=== PATIENT | male | born 1980 | race American Indian/Alaskan Native ===

== ENCOUNTER 2024-01-18 21:26 | Inpatient (IN) | payer MEDICAID ==
[2024-01-18 22:39] LABS: BASOPHILS ABSOLUTE AUTO 0.04 K/uL (0.00-0.10); BASOPHILS PERCENT AUTO 0.4 % (0.1-1.3); EOSINOPHILS ABSOLUTE AUTO 0.15 K/uL (0.00-0.40); EOSINOPHILS PERCENT AUTO 1.4 % (0.0-5.4); HEMOGLOBIN 13.2 g/dL (12.9-16.9); IMMATURE GRAN ABSOLUTE AUTO 0.06 K/uL (0.00-0.23); IMMATURE GRAN PERCENT AUTO 0.6 % (0.0-0.7); LYMPHOCYTES ABSOLUTE AUTO 0.79 K/uL (0.8-3.3); LYMPHOCYTES PERCENT AUTO 7.3 % (11.4-47.7); MEAN CORPUSCULAR HGB CONC 34.7 g/dL (31.6-35.5); MEAN CORPUSCULAR VOLUME 83.5 fL (81.4-99.0); MONOCYTES ABSOLUTE AUTO 0.76 K/uL (0.20-0.90); NEUTROPHILS ABSOLUTE AUTO 9.07 K/uL (1.0-7.6); NEUTROPHILS PERCENT AUTO 83.3 % (40.0-78.1); PLATELET COUNT,PLT 373 K/uL (130-375); RED BLOOD CELL COUNT 4.55 M/uL (4.14-5.76); WHITE BLOOD CELL COUNT,WBC 10.9 K/uL (3.2-11.0)
[2024-01-18] MEDS: Sodium Chloride 0.9% 10 ML Syringe FLUSH PRN (22:44)
[2024-01-18] MEDS: fentaNYL 100 MCG/2 ML SDV IVPUSH ONE (22:44)
[2024-01-18 23:05] LABS: A/G RATIO 0.9 (1.2-2.2); ALANINE AMINOTRANSFERASE,ALT 31 U/L (12-78); ALBUMIN 3.4 g/dL (3.4-5.0); ALKALINE PHOSPHATASE 116 U/L (46-116); ASPARTATE AMNIOTRANSFERASE,AST 19 U/L (15-37); BILIRUBIN TOTAL 0.6 mg/dL (0.2-1.0); BLOOD UREA NITROGEN,BUN 18 mg/dL (7-18); CALCIUM 8.8 mg/dL (8.5-10.1); CARBON DIOXIDE,CO2 31 mmol/L (21-32); CHLORIDE,CL 101 mmol/L (100-108); CREATININE 0.8 mg/dL (0.8-1.3); EST CRCL DRUG DOSING (CG) 135.57 mL/min; ESTIMATED GFR 111 mL/min (>60); GLUCOSE RANDOM 124 mg/dL (74-106); POTASSIUM,K 3.9 mmol/L (3.6-5.2); PROTEIN TOTAL,TP 7.3 g/dL (6.4-8.2); SODIUM,NA 139 mmol/L (140-148)
[2024-01-18 23:09] LABS: ANION GAP 10.9 mmol/L (5.0-14.0); TROPONIN I HIGH SENSITIVITY < 4.0 pg/mL (<=60.3)
[2024-01-18] MEDS: Iopamidol 612 MG/ML 100 ML Bottle IV STA (23:09)
[2024-01-18] MEDS: Sodium Chloride 0.9% 80 ML IV STA (23:10)
[2024-01-19] MEDS: Piperacillin/Tazobactam 4.5 GM in Sodium Chloride 0.9% 100 ML IV ONE (02:03)
[2024-01-19] MEDS: HYDROmorphone 0.5 MG/0.5 ML Syringe IVPUSH ONE (02:16)
[2024-01-19] MEDS: metroNIDAZOLE/Normal Saline 500 MG in Premix Bag 1 BAG IV SCH (02:44)
[2024-01-19] MEDS ORDERED: Albuterol 0.083% 2.5 MG/3 ML Neb Soln NEB PRN (02:59)
[2024-01-19] MEDS ORDERED: Ondansetron 4 MG/2 ML SDV IV PRN (02:59)
[2024-01-19] MEDS: HYDROmorphone 1 MG/ML Syringe IVPUSH PRN (03:07)
[2024-01-19] MEDS: METRONIDAZOLE IV ONE (03:13)
[2024-01-19] MEDS: NORMAL SALINE IV ONE (03:13)
[2024-01-19] MEDS: Sodium Chloride 0.9% 1,000 ML IV SCH (03:41)
[2024-01-19] MEDS: Nicotine 21 MG/24 Hr Patch TRDERM SCH (03:47)
[2024-01-19] MEDS ORDERED: FLU (Fluarix Triv) TS24-25(6MOS UP)/PF 45 MCG/0.5 ML Syringe IM ONE (04:00)
[2024-01-19] MEDS: Piperacillin/Tazobactam 4.5 GM in Sodium Chloride 0.9% 100 ML IV SCH (05:56)
[2024-01-19] MEDS ORDERED: Piperacillin/Tazobactam 3.375 GM in Sodium Chloride 0.9% 50 ML IV SCH (07:10)
[2024-01-19] MEDS: fentaNYL 100 MCG/2 ML SDV IVPUSH PRN ×2 (07:38→09:40)
[2024-01-19] MEDS ORDERED: metroNIDAZOLE/Normal Saline 500 MG in Premix Bag 1 BAG IV SCH ×2 (09:00→12:00)
[2024-01-19] MEDS ORDERED: Ondansetron 4 MG/2 ML SDV ONE (11:43)
[2024-01-19] MEDS ORDERED: Dexamethasone 4 MG/ML SDV ONE (11:43)
[2024-01-19] MEDS ORDERED: Propofol 200 MG/20 ML SDV ONE (11:43)
[2024-01-19] MEDS ORDERED: Rocuronium 50 MG/5 ML Vial ONE (11:43)
[2024-01-19] MEDS ORDERED: Succinylcholine 200 MG/10 ML MDV ONE (11:43)
[2024-01-19] MEDS ORDERED: Glycopyrrolate 0.2 MG/ML 5 ML MDV ONE (11:43)
[2024-01-19] MEDS ORDERED: Neostigmine Methylsulfate 10 MG/10 ML MDV ONE (11:43)
[2024-01-19] MEDS ORDERED: fentaNYL 250 MCG/5 ML SDV ONE ×2 (11:45→15:39)
[2024-01-19] MEDS: Bupivacaine 0.5%/EPINEPHrine 1:200,000 50 ML MDV ONE (12:44)
[2024-01-19] MEDS: Piperacillin/Tazobactam/Dext 4.5 GM in Premix Bag 1 BAG IV SCH (14:00)
[2024-01-19] MEDS: Indocyanine Green 25 MG SDV IV ONE (14:30)
[2024-01-19] MEDS ORDERED: Lactated Ringers 1,000 ML ONE (15:58)
[2024-01-19] MEDS ORDERED: Ondansetron 4 MG/2 ML SDV IVPUSH PRN (16:21)
[2024-01-19] MEDS ORDERED: Benzocaine/Cetylpyridinium/Menthol Lozenge MUCMEM PRN (16:21)
[2024-01-19] MEDS ORDERED: Zolpidem 5 MG Tab PO PRN (16:21)
[2024-01-19] MEDS ORDERED: Docusate Sodium 100 MG Cap PO PRN (16:21)
[2024-01-19] MEDS ORDERED: hydrOXYzine HCL 100 MG/2 ML SDV IM PRN (16:21)
[2024-01-19] MEDS ORDERED: fentaNYL 50 MCG/ML SDV IVPUSH PRN ×3 (16:36→17:51)
[2024-01-19] MEDS: Acetaminophen/HYDROcodone 325-5 MG Tab PO PRN (17:30)
[2024-01-19 17:52] LABS: HEMATOCRIT 38.8 % (38.4-49.7); HEMOGLOBIN 13.4 g/dL (12.9-16.9); MEAN CORPUSCULAR HEMOGLOBIN 29.1 pg (31.6-35.5); MEAN CORPUSCULAR HGB CONC 34.5 g/dL (31.6-35.5); MEAN CORPUSCULAR VOLUME 84.3 fL (81.4-99.0); RED BLOOD CELL COUNT 4.6 M/uL (4.14-5.76); WHITE BLOOD CELL COUNT,WBC 19.6 K/uL (3.2-11.0)
[2024-01-19 18:15] LABS: A/G RATIO 0.8 (1.2-2.2); ALANINE AMINOTRANSFERASE,ALT 89 U/L (12-78); ALBUMIN 3.3 g/dL (3.4-5.0); ALKALINE PHOSPHATASE 148 U/L (46-116); ANION GAP 11.6 mmol/L (5.0-14.0); ASPARTATE AMNIOTRANSFERASE,AST 91 U/L (15-37); BILIRUBIN TOTAL 1.1 mg/dL (0.2-1.0); BLOOD UREA NITROGEN,BUN 15 mg/dL (7-18); CALCIUM 8.8 mg/dL (8.5-10.1); CARBON DIOXIDE,CO2 30 mmol/L (21-32); CHLORIDE,CL 100 mmol/L (100-108); CREATININE 1.1 mg/dL (0.8-1.3); ESTIMATED GFR 84 mL/min (>60); GLUCOSE RANDOM 144 mg/dL (74-106); POTASSIUM,K 3.6 mmol/L (3.6-5.2); PROTEIN TOTAL,TP 7.3 g/dL (6.4-8.2); SODIUM,NA 138 mmol/L (140-148)
[2024-01-19] MEDS: Scopalamine 1mg/3day Transdermal Patch TOP ONE (18:33)
[2024-01-20] MEDS ORDERED: FLU (Fluarix Triv) TS24-25(6MOS UP)/PF 45 MCG/0.5 ML Syringe IM ONE (09:00)
[2024-01-20] MEDS ORDERED: VERIFY SCOP PATCH TOP SCH (09:00)
[2024-01-20 19:05] LABS: HEPATITIS A ANTIBODY, IGM Negative (Negative); HEPATITIS B CORE ANTIBODY, IGM Negative (Negative); HEPATITIS B SURFACE ANTIGEN Negative (Negative); HEPATITIS C AB CIA INTERP Negative (Negative); HEPATITIS C ANTIBODY CIA INDEX 0.09 IV
== END 2024-01-19 22:37 | disposition home or self-care (01) | DRG 419 ==
LOC: JP.ED 21:26 → JP.ICU 01-19 01:46
PROVIDERS: ADMIT Internal Medicine; ATTEND Surgery
PROC: 8E0W4CZ Robotic Assisted Procedure of Trunk Region, Percutaneous Endoscopic Approach (ICD-10-PCS; 2024-01-19)
PROC: 0W9G3ZZ Drainage of Peritoneal Cavity, Percutaneous Approach (ICD-10-PCS; 2024-01-19)
PROC: 0FT44ZZ Resection of Gallbladder, Percutaneous Endoscopic Approach (ICD-10-PCS; principal; 2024-01-19 15:00)
DX: K80.00 Calculus of gallbladder with acute cholecystitis without obstruction (principal); F17.210 Nicotine dependence, cigarettes, uncomplicated; F19.10 Other psychoactive substance abuse, uncomplicated
CPT/HCPCS: 00790-QZ; 36415; 74177; 80053; 80074; 83605; 83690; 84484; 85025; 85027; 87070; 87075; 87077; 87186; 87205; 87449; 88304; 96374; 99222; 99285; 99285-25; A9270-GY; J0171; J0330; J1100; J1171; J1596; J1836; J2405; J2543; J2704; J2710; J2795; J3010; J3490; J7030; J7120; Q9967